=== PATIENT | male | born 1940 | race Two or more races ===

== ENCOUNTER 2022-08-19 10:06 | Emergency (ER) | payer BC, OTHER ==
[2022-08-19 10:18] VITALS: BP 156/78; PULSE 73; RESP 20; TEMP 97.5; BMI 26.6
[2022-08-19] MEDS ORDERED: ACETAMINOPHEN 1000 MG/100 ML BAG IVPB ONE (10:45)
[2022-08-19] MEDS ORDERED: ACETAMINOPHEN INJECTION 100 ML IVPB ONE (11:11)
[2022-08-19 11:39] LABS: BASO % 0.9 % (0-2.0); EOS % 5.6 % (0-4.5); HEMATOCRIT 36.4 % (35.4-49); HEMOGLOBIN 12.1 GM/dL (11.7-16.9); LYMPH % 22.1 % (8-40); MCH 30.7 pg (25.7-33.7); MCHC 33.3 g/dl (32.0-35.9); MEAN CELL VOLUME 92.3 fl (80-96); MEAN PLT VOLUME 9.4 fl (7.5-11.1); MONO % 9.1 % (3.8-10.2); NEUT % 62.3 % (42.8-82.8); PLATELET COUNT 253 10^3/uL (134-434); RBC 3.94 M/mm3 (4.00-5.60); RDW 13.9 % (11.9-15.9); WHITE BLOOD COUNT 7.3 K/mm3 (4.0-10.0)
[2022-08-19 11:53] LABS: POTASSIUM 5.5 mmol/L (3.5-5.1)
[2022-08-19 11:55] LABS: CALCIUM 8.7 mg/dL (8.5-10.1)
[2022-08-19 11:56] LABS: ALBUMIN 3.6 g/dl (3.4-5.0); BLOOD UREA NITROGEN 32.8 mg/dL (7-18)
[2022-08-19 11:59] LABS: CREATININE 1.3 mg/dL (0.55-1.3)
[2022-08-19 12:00] LABS: TOT PROT 7.2 g/dl (6.4-8.2)
== END 2022-08-19 14:53 | disposition home or self-care (01) ==
LOC: JER 10:06
PROC: 3E033NZ Introduction of Analgesics, Hypnotics, Sedatives into Peripheral Vein, Percutaneous Approach (ICD-10-PCS; principal; 2022-08-19)
DX: R10.32 Left lower quadrant pain (principal); R10.12 Left upper quadrant pain; W10.8XXA Fall (on) (from) other stairs and steps, initial encounter; W22.8XXA Striking against or struck by other objects, initial encounter
CPT/HCPCS: 36415; 70450-TC; 71260-TC; 72125-TC; 74177-TC; 80053; 83690; 85025; 99285-25; Q9967

== ENCOUNTER 2024-02-12 17:32 | Observation (INO) | payer OTHER ==
[2024-02-12 17:52] VITALS: BMI 27.9
[2024-02-12] MEDS: LACTATED RINGERS SOLUTION 1000 ML INFUS.BAG IV ONE (18:55)
[2024-02-12 19:20] LABS: INR 1.1 (0.83-1.09); PROTHROMBIN TIME (PATIENT) 12.4 SEC (9.7-13.0)
[2024-02-12 19:22] LABS: ACTIVATED PTT 30.7 SECONDS (25.2-36.5)
[2024-02-12 19:36] LABS: POTASSIUM 4.5 mmol/L (3.5-5.1)
[2024-02-12 19:38] LABS: BASO % 0.7 % (0-2.0); CALCIUM 8.9 mg/dL (8.5-10.1); EOS % 5.2 % (0-4.5); HEMATOCRIT 40.6 % (35.4-49); HEMOGLOBIN 13.6 GM/dL (11.7-16.9); LYMPH % 20.6 % (8-40); MCH 31.2 pg (25.7-33.7); MCHC 33.5 g/dl (32.0-35.9); MEAN CELL VOLUME 92.9 fl (80-96); MEAN PLT VOLUME 8.7 fl (7.5-11.1); MONO % 8.7 % (3.8-10.2); NEUT % 64.8 % (42.8-82.8); PLATELET COUNT 217 10^3/uL (134-434); RBC 4.37 M/mm3 (4.00-5.60); RDW 15.3 % (11.9-15.9); WHITE BLOOD COUNT 8.5 K/mm3 (4.0-10.0)
[2024-02-12 19:39] LABS: ALBUMIN 3.7 g/dl (3.4-5.0); BLOOD UREA NITROGEN 20.6 mg/dL (7-18); MAGNESIUM 1.8 mg/dL (1.8-2.4)
[2024-02-12 19:42] LABS: CREATININE 1.3 mg/dL (0.55-1.3); PHOSPHOROUS 3.6 mg/dL (2.5-4.9)
[2024-02-12 19:47] LABS: N-TERMINAL BNP 300.2 pg/ml (5-450)
[2024-02-12 23:49] LABS: HIV INTERPRETATION NEGATIVE (NEGATIVE)
[2024-02-13 03:44] VITALS: RESP 18
[2024-02-13] MEDS: METOPROLOL TARTRATE 25 MG TABLET (FP) PO ONE (04:18)
[2024-02-13] MEDS: INSULIN ASPART SLIDING SCALE (NOVOLOG) 1 VIAL SQ SCH (06:13)
[2024-02-13] MEDS: HEPARIN NA (PORCINE) 5,000 UNITS/ML 1ML VIAL SQ SCH (06:16)
[2024-02-13] MEDS: FLUTICASONE PROP 0.05% 16 GM NASAL SPRAY NS SCH (10:50)
[2024-02-13] MEDS: ALLOPURINOL 100 MG TABLET (FP) PO SCH (10:51)
[2024-02-13] MEDS: LOSARTAN POTASSIUM 25 MG TABLET PO SCH (10:51)
[2024-02-13] MEDS: METOPROLOL TARTRATE 25 MG TABLET (FP) PO SCH (10:53)
[2024-02-13 12:38] LABS: URINE APPEARANCE CLEAR; URINE BILIRUBIN NEGATIVE (NEGATIVE); URINE COLOR YELLOW; URINE GLUCOSE (UA) NEGATIVE (NEGATIVE); URINE KETONE NEGATIVE (NEGATIVE); URINE LEUK ESTERASE NEGATIVE (NEGATIVE); URINE NITRITE NEGATIVE (NEGATIVE); URINE PROTEIN NEGATIVE (NEGATIVE); URINE UROBILINOGEN 0.2 mg/dL (0.2-1.0)
[2024-02-13] MEDS: dilTIAZem HCL 30 MG TABLET PO SCH (14:07)
[2024-02-13] MEDS: metFORMIN HCL 500 MG TABLET (FP) PO SCH (16:43)
[2024-02-13] MEDS: ATORVASTATIN CA 20 MG TABLET (FP) PO SCH (21:42)
[2024-02-13] MEDS: APIXABAN 5 MG TABLET PO SCH (21:42)
[2024-02-14 07:08] LABS: BASO % 1.1 % (0-2.0); EOS % 8.7 % (0-4.5); HEMATOCRIT 39.1 % (35.4-49); HEMOGLOBIN 12.9 GM/dL (11.7-16.9); LYMPH % 24.4 % (8-40); MCH 31.1 pg (25.7-33.7); MCHC 32.9 g/dl (32.0-35.9); MEAN CELL VOLUME 94.4 fl (80-96); MEAN PLT VOLUME 8.8 fl (7.5-11.1); MONO % 8.4 % (3.8-10.2); NEUT % 57.4 % (42.8-82.8); PLATELET COUNT 221 10^3/uL (134-434); RBC 4.14 M/mm3 (4.00-5.60); RDW 14.8 % (11.9-15.9); WHITE BLOOD COUNT 7.4 K/mm3 (4.0-10.0)
[2024-02-14 07:29] LABS: POTASSIUM 3.8 mmol/L (3.5-5.1)
[2024-02-14 07:36] LABS: ALBUMIN 3.5 g/dl (3.4-5.0); BLOOD UREA NITROGEN 19.2 mg/dL (7-18); CALCIUM 8.4 mg/dL (8.5-10.1); MAGNESIUM 1.6 mg/dL (1.8-2.4)
[2024-02-14 07:41] LABS: BILIRUBIN,TOTAL 0.9 mg/dL (0.2-1); PHOSPHOROUS 4.4 mg/dL (2.5-4.9); TOT PROT 6.5 g/dl (6.4-8.2)
[2024-02-14 09:59] VITALS: BP 139/69; PULSE 84; TEMP 97.7
[2024-02-14] MEDS: MAGNESIUM OXIDE 400 MG TABLET (FP) PO ONE (10:04)
== END 2024-02-14 12:03 | disposition home or self-care (01) ==
LOC: JER 17:32 → JERBED 22:26 → J4S 02-13 03:25
PROVIDERS: ADMIT Student in an Organized Health Care Education/Training Program; ATTEND Internal Medicine
PROC: 3E013VG Introduction of Insulin into Subcutaneous Tissue, Percutaneous Approach (ICD-10-PCS; principal; 2024-02-12)
PROC: 3E0337Z Introduction of Electrolytic and Water Balance Substance into Peripheral Vein, Percutaneous Approach (ICD-10-PCS; 2024-02-12)
DX: I48.92 Unspecified atrial flutter (principal); R00.0 Tachycardia, unspecified; J44.9 Chronic obstructive pulmonary disease, unspecified; I10 Essential (primary) hypertension; E78.5 Hyperlipidemia, unspecified; E11.9 Type 2 diabetes mellitus without complications; M10.9 Gout, unspecified; Z88.8 Allergy status to other drugs, medicaments and biological substances
CPT/HCPCS: 0241U-QW; 36415; 71045-TC-FY; 80053; 81003; 82550; 82553; 82962; 83036; 83735; 83880; 84100; 84439; 84443; 84484; 85025; 85610; 85730; 86803; 86850; 86900; 86901; 87389; 93005; 93010; 93306-TC; 96360; 96372; 99285-25; G0378; J1644